=== PATIENT | female | born 1995 | race Caucasian/White ===

== ENCOUNTER 2022-11-26 08:46 | Emergency (ER) | payer MEDICAID ==
[2022-11-26] MEDS ORDERED: Ondansetron 4 MG/2 ML SDV IVPUSH ONE (09:08)
[2022-11-26] MEDS ORDERED: Morphine 4 MG/ML Syringe IVPUSH ONE ×2 (09:08→12:37)
[2022-11-26] MEDS ORDERED: Lactated Ringers 1,000 ML IV ONE ×2 (09:08→12:04)
[2022-11-26 09:52] LABS: A/G RATIO 1.2 (1-2); ALBUMIN 4.5 g/dl (3.4-5.0); ANION GAP 21.1 (5-15); BILIRUBIN TOTAL 0.8 mg/dL (0.2-1.0); BUN/CREATININE RATIO 11.3 (14-18); CALCIUM 9.1 mg/dL (8.5-10.1); CREATININE 0.8 mg/dL (0.55-1.02); EST CRCL DRUG DOSING (CG) 87.38 mL/min; PROTEIN TOTAL,TP 8.4 g/dl (6.4-8.2)
[2022-11-26 09:59] LABS: POTASSIUM,K 3.1 mEq/L (3.5-5.1)
[2022-11-26 10:01] LABS: BASOPHILS ABSOLUTE AUTO 0.01 K/mm3 (0.01-0.08); BASOPHILS PERCENT AUTO 0.2 % (0.1-1.2); EOSINOPHILS ABSOLUTE AUTO 0.13 K/mm3 (0.04-0.36); EOSINOPHILS PERCENT AUTO 2.4 (0.7-5.8); HEMATOCRIT 44.6 % (34.1-44.9); HEMOGLOBIN 14.8 gm/dl (11.2-15.7); IMMATURE GRAN ABSOLUTE AUTO 0.01 K/mm3 (0.00-0.10); IMMATURE GRAN PERCENT AUTO 0.2 % (<=1.0); LYMPHOCYTES ABSOLUTE AUTO 1.31 K/mm3 (1.18-3.74); MEAN CORPUSCULAR HEMOGLOBIN 26.8 pg (25.6-32.2); MEAN CORPUSCULAR HGB CONC 33.2 g/dl (32.2-35.5); MEAN CORPUSCULAR VOLUME 80.7 fl (79.4-94.8); MEAN PLATELET VOLUME 10.7 fl (9.4-12.3); MONOCYTES PERCENT AUTO 5.5 % (4.7-12.5); NEUTROPHILS ABSOLUTE AUTO 3.69 K/mm3 (1.56-6.13); NEUTROPHILS PERCENT AUTO 67.7 % (34.0-71.1); PLATELET COUNT,PLT 252 K/mm3 (182-369); RED BLOOD CELL COUNT 5.53 M/mm3 (3.98-5.22); WHITE BLOOD CELL COUNT,WBC 5.45 K/mm3 (3.98-10.04)
[2022-11-26 10:12] LABS: LACTIC ACID 0.7 mmol/L (0.4-2.0)
[2022-11-26] MEDS ORDERED: Sodium Chloride 0.9% 10 ML Syringe FLUSH PRN (11:12)
[2022-11-26] MEDS ORDERED: Iopamidol 612 MG/ML 100 ML Bottle IVPUSH ONE (11:12)
[2022-11-26 11:22] LABS: APPEARANCE,URINE SLT CLOUDY (Clear); BILIRUBIN,URINE 1+ (Negative); COLOR,URINE YELLOW (Yellow); GLUCOSE,URINE NEGATIVE (Negative); KETONES,URINE 4+ (Negative); LEUKOCYTE ESTERASE,URINE NEGATIVE (Negative); NITRITE,URINE NEGATIVE (Negative); OCCULT BLOOD,URINE 2+ (Negative); PH,URINE 5.5 (5.0-8.0); PROTEIN,URINE 1+ (Negative); UROBILINOGEN,URINE 0.2 (0.2-1.0)
[2022-11-26 11:45] LABS: BACTERIA,URINE FEW /hpf (FEW); MUCUS,URINE MODERATE /hpf (FEW); RBC,URINE 0-5 /hpf (0-5); WBC,URINE 0-5 /hpf (0-5)
[2022-11-26] MEDS ORDERED: Ketorolac 30 MG/ML SDV IVPUSH ONE (12:42)
== END 2022-11-26 13:05 | disposition home or self-care (01) ==
LOC: JD.ED 08:46
DX: R10.13 Epigastric pain (principal); R10.31 Right lower quadrant pain; R10.32 Left lower quadrant pain
CPT/HCPCS: 36415; 74177; 76856; 80053; 81001; 83605; 83690; 84703; 85025; 96361; 96374; 96375; 96376; 99284; J1885; J2270; J2405; J3490; J7120; Q9967